=== PATIENT | male | born 1970 | race Hispanic/Latino ===

== ENCOUNTER 2019-12-13 17:49 | Inpatient (IN) | payer MEDICAID, OTHER, SELFPAY ==
[~2019-12-13] VITALS: Ht 175.3 cm; Wt 431.4 kg
[2019-12-13 18:50] LABS: BASOPHILS % (AUTO) 0.1 % (0.0-5.0); HEMATOCRIT 42.3 % (42-54); LYMPHOCYTES % (AUTO) 16.8 % (21.0-51.0); MEAN CORPUSCULAR HEMOGLOBIN 28.6 pg (27.0-33.0); MEAN CORPUSCULAR HGB CONC 33.8 g/dL (32.0-36.0); MEAN CORPUSCULAR VOLUME 84.6 fL (79-99); MONOCYTES % (AUTO) 5.2 % (3.0-13.0); NEUTROPHILS % (AUTO) 77.6 % (40.0-77.0); PLATELET COUNT (AUTO) 183 K/uL (130-400); RED CELL DISTRIBUTION WIDTH 13.1 % (11.0-15.5); WHITE BLOOD COUNT (AUTO) 6.7 K/uL (4.8-10.8)
[2019-12-13 18:57] LABS: CARBON DIOXIDE 28 mmol/L (21-32); CHLORIDE 97 mmol/L (101-111); GLOMERULAR FILTR. RATE CALC 84 mL/min (>60); GLUCOSE,RANDOM 231 mg/dL (70-105); POTASSIUM 3.4 mmol/L (3.5-5.1); SODIUM SERUM 135 mmol/L (136-145); UREA NITROGEN, BLOOD 6 mg/dL (7-18)
[2019-12-13 19:07] LABS: ALANINE AMINOTRANSFERASE 67 U/L (12-78); ASPARTATE AMINOTRANSFERASE 59 U/L (10-37); BILIRUBIN,TOTAL 0.6 mg/dL (0.2-1.0); CREATINE KINASE, TOTAL 111 U/L (21-232); MYOGLOBIN 46 ng/mL (10-92); TOTAL PROTEIN, SERUM 7.8 g/dL (6.0-8.3); TROPONIN I < 0.04 ng/mL (0.00-0.06)
[2019-12-13 19:17] LABS: APPEARANCE,URINE Clear (CLEAR); BILIRUBIN,URINE Negative (NEGATIVE); COLOR,URINE Dark Yellow (YELLOW); GLUCOSE, URINE (UA) 250 mg/dL (NEGATIVE); KETONES,URINE Trace mg/dL (NEGATIVE); LEUKOCYTE ESTERASE ,URINE Negative (NEGATIVE); NITRATE,URINE Negative (NEGATIVE); OCCULT BLOOD,URINE Negative (NEGATIVE); PH,URINE 6.5 (5.0-8.0); PROTEIN,URINE POS 2+ mg/dL (NEGATIVE)
[2019-12-13 19:26] LABS: INR 1.08 (0.85-1.15); PARTIAL THROMBOPLASTIN TIME 30.1 SEC (26.3-35.5); PROTHROMBIN TIME 11.6 SEC (9.6-11.6)
[2019-12-13 19:36] LABS: BACTERIA,URINE Rare /HPF (None Seen); RBC,URINE None Seen /HPF (0-1); WBC,URINE 0-1 /HPF (0-1)
[2019-12-13] MEDS ORDERED: AZITHROMYCIN 500MG+NS 250ML 250 ML IV ONE (19:39)
[2019-12-13] MEDS ORDERED: CEFTRIAXONE SODIUM 1 GM ONE (19:39)
[2019-12-13] MEDS ORDERED: SODIUM CHLORIDE 0.9% 1000ML 1,000 ML IV ONE (19:40)
[2019-12-13] MEDS ORDERED: FAMOTIDINE/PF 20 MG/2 ML VIAL IV ONE (19:40)
[2019-12-13] MEDS ORDERED: ONDANSETRON HCL 4 MG/2 ML VIAL ONE (19:40)
[2019-12-13] MEDS ORDERED: ACETAMINOPHEN 325 MG TAB ONE (19:50)
[2019-12-13 19:56] LABS: ABG BASE EXCESS -0.5 mmol/L (-2.0-3.0); ABG HCO3 22.5 mmol/L (21.0-28.0); ABG OXYGEN SATURATION 95.1 % (95.0-99.0); ABG PCO2 32 mmHg (35-48)
[2019-12-13] MEDS ORDERED: ENOXAPARIN SODIUM 30 MG/0.3 ML SQ ONE (19:57)
[2019-12-13] MEDS ORDERED: AZITHROMYCIN 500MG+NS 250ML 250 ML IV SCH (21:30)
[2019-12-13] MEDS ORDERED: ERGOCALCIFEROL (VITAMIN D2) 50,000 UNIT CAPSULE PO ONE (21:30)
[2019-12-13] MEDS ORDERED: POTASSIUM CHLORIDE 20MEQ/100ML 100 ML IV PRN (21:30)
[2019-12-13] MEDS ORDERED: DEXTROSE 50%-WATER 50 ML DISP.SYRIN IV PRN (21:30)
[2019-12-13] MEDS ORDERED: POTASSIUM CHLORIDE 10% ELIXIR 20 MEQ/15 ML UDCUP PO PRN (21:30)
[2019-12-13] MEDS ORDERED: MAGNESIUM 2GM PREMIX 50ML 50 ML IV PRN (21:30)
[2019-12-13] MEDS ORDERED: GLUCAGON 1MG KIT 1 MG ML IM PRN (21:30)
[2019-12-13] MEDS ORDERED: ONDANSETRON HCL 4 MG/2 ML VIAL IV PRN (21:30)
[2019-12-13] MEDS ORDERED: GUAIFENESIN-DM 200/20 MG 10 ML PO PRN (21:30)
[2019-12-13] MEDS ORDERED: ALBUTEROL INHALER 90MCG/INH IH PRN (21:30)
[2019-12-13] MEDS ORDERED: ACETAMINOPHEN 325 MG TAB PO PRN ×2 (21:30)
[2019-12-13] MEDS ORDERED: LIDOCAINE HCL-MPF 1% 2ML VIAL IV PRN (21:30)
[2019-12-14] MEDS ORDERED: ENOXAPARIN SODIUM 40 MG/0.4 ML SYRINGE SQ ONE (00:32)
[2019-12-14] MEDS ORDERED: METHYLPREDNISOLONE SOD SUCC 40MG/ML 1ML ONE ×3 (00:32→22:08)
[2019-12-14 07:05] LABS: BASOPHILS % (AUTO) 0.2 % (0.0-5.0); HEMATOCRIT 38.7 % (42-54); LYMPHOCYTES % (AUTO) 15.6 % (21.0-51.0); MEAN CORPUSCULAR HGB CONC 33.9 g/dL (32.0-36.0); MEAN CORPUSCULAR VOLUME 85.6 fL (79-99); MONOCYTES % (AUTO) 2.4 % (3.0-13.0); NEUTROPHILS % (AUTO) 81.3 % (40.0-77.0); PLATELET COUNT (AUTO) 180 K/uL (130-400); RED BLOOD CELL COUNT(AUTO) 4.52 MIL/uL (4.50-6.20); WHITE BLOOD COUNT (AUTO) 6.3 K/uL (4.8-10.8)
[2019-12-14] MEDS ORDERED: IOHEXOL 350 MG/ML 100ML INFUS..BTL IV ONE (07:13)
[2019-12-14] MEDS: INSULIN HUMULIN R 100 UNIT/ML 3ML SQ SCH ×4 (07:30→21:00)
[2019-12-14 07:32] LABS: ALBUMIN 2.7 g/dL (3.5-5.0); BILIRUBIN,TOTAL 0.6 mg/dL (0.2-1.0); CREATININE 0.8 mg/dL (0.5-1.5); CRP QUANTITATIVE 139.1 mg/L (0.00-9.0); MAGNESIUM 2.2 mg/dL (1.80-2.40); POTASSIUM 3.9 mmol/L (3.5-5.1); TOTAL PROTEIN, SERUM 7.2 g/dL (6.0-8.3)
[2019-12-14] MEDS: ASCORBIC ACID 500 MG TAB PO SCH (09:00)
[2019-12-14] MEDS ORDERED: ENOXAPARIN SODIUM 80 MG/0.8 ML SQ SCH (09:00)
[2019-12-14] MEDS ORDERED: ENOXAPARIN SODIUM 40 MG/0.4 ML SYRINGE SQ SCH (09:00)
[2019-12-14] MEDS: ZINC SULFATE 220 CAPSULE PO SCH (09:00)
[2019-12-14] MEDS ORDERED: ENOXAPARIN SODIUM 80 MG/0.8 ML SQ ONE (10:06)
[2019-12-14] MEDS ORDERED: ASCORBIC ACID 500 MG TAB ONE (10:07)
[2019-12-14] MEDS ORDERED: ACETYLCYSTEINE 600 MG CAPSULE ONE ×2 (10:08→22:08)
[2019-12-14] MEDS ORDERED: CEFTRIAXONE SODIUM 1 GM ONE ×2 (10:08→22:09)
[2019-12-14] MEDS ORDERED: ZINC SULFATE 220 CAPSULE ONE (10:08)
[2019-12-14] MEDS ORDERED: FAMOTIDINE/PF 20 MG/2 ML VIAL IV ONE ×2 (10:09→22:10)
[2019-12-14] MEDS ORDERED: INSULIN HUMULIN R 100 UNIT/ML 3ML ONE (10:11)
--- NOTE | 2019-12-14 16:23 | NUR ---
SPOKE TO SPOUSE RE DC PLANNING STATES LIVES WITH SPOUSE, IS INDEPENDENT, DRIVES, USES NO DME EXCEPT A CPAP WHICH WAS PRESCRIBE YEARS AGO WHEN MICHAEL HAD INSURANCE. CURRENTLY GOES OT [facility]- HAS A GLUCMENT, GETS LABS TEST Q 6 MOS. MOM IS HOSPITALIZED W COVID + , SPOUSE OK, DC PLAN IS HOME, SPOUSE TO PROVIDE TRANSPORT Addendum: 12/14/19 at 1625 by CHARLIE VIRK RN CM Amended: Links added.
[2019-12-14] MEDS: METHYLPREDNISOLONE SOD SUCC 40MG/ML 1ML IVP SCH (21:00)
[2019-12-14] MEDS: FAMOTIDINE/PF 20 MG/2 ML VIAL IV SCH (21:00)
[2019-12-14] MEDS: ACETYLCYSTEINE 600 MG CAPSULE PO SCH (21:00)
[2019-12-14] MEDS: CEFTRIAXONE SODIUM 1 GM IVP SCH (21:30)
[2019-12-14] MEDS ORDERED: AZITHROMYCIN 500MG+NS 250ML 250 ML IV ONE (22:08)
[2019-12-15] MEDS: PHARMACY COMMUNICATION MISC SCH ×2 (04:37→13:41)
[2019-12-15 05:54] LABS: BASOPHILS % (AUTO) 0.1 % (0.0-5.0); HEMATOCRIT 39.3 % (42-54); LYMPHOCYTES % (AUTO) 15.5 % (21.0-51.0); MEAN CORPUSCULAR HEMOGLOBIN 28.4 pg (27.0-33.0); MEAN CORPUSCULAR HGB CONC 33.1 g/dL (32.0-36.0); MONOCYTES % (AUTO) 4.5 % (3.0-13.0); NEUTROPHILS % (AUTO) 79.2 % (40.0-77.0); PLATELET COUNT (AUTO) 223 K/uL (130-400); RED BLOOD CELL COUNT(AUTO) 4.57 MIL/uL (4.50-6.20); RED CELL DISTRIBUTION WIDTH 12.9 % (11.0-15.5); WHITE BLOOD COUNT (AUTO) 8.1 K/uL (4.8-10.8)
[2019-12-15 06:13] LABS: ALBUMIN 2.8 g/dL (3.5-5.0); BILIRUBIN,TOTAL 0.5 mg/dL (0.2-1.0); CREATININE 0.9 mg/dL (0.5-1.5); CRP QUANTITATIVE 80.3 mg/L (0.00-9.0); POTASSIUM 3.6 mmol/L (3.5-5.1); TOTAL PROTEIN, SERUM 7.4 g/dL (6.0-8.3)
[2019-12-15 06:39] VITALS: BP 125/72
[2019-12-15 08:48] VITALS: BP 106/59
[2019-12-15] MEDS: CEFTRIAXONE SODIUM 1 GM IVP SCH ×2 (09:14→21:38)
[2019-12-15] MEDS: FAMOTIDINE/PF 20 MG/2 ML VIAL IV SCH ×2 (09:15→21:38)
[2019-12-15] MEDS: POTASSIUM CHLORIDE 20 MEQ ERTAB PO PRN ×2 (09:15→12:53)
[2019-12-15] MEDS: ASCORBIC ACID 500 MG TAB PO SCH (09:16)
[2019-12-15] MEDS: ACETYLCYSTEINE 600 MG CAPSULE PO SCH ×2 (09:16→21:38)
[2019-12-15] MEDS: GLIPIZIDE 5 MG TABLET PO SCH (09:16)
[2019-12-15] MEDS: ZINC SULFATE 220 CAPSULE PO SCH (09:16)
[2019-12-15] MEDS: METFORMIN HCL 500 MG TABLET PO SCH ×2 (09:17→16:45)
[2019-12-15] MEDS: ENOXAPARIN SODIUM 40 MG/0.4 ML SYRINGE SQ SCH (09:17)
[2019-12-15] MEDS: METHYLPREDNISOLONE SOD SUCC 40MG/ML 1ML IVP SCH ×3 (09:18→21:38)
[2019-12-15] MEDS: INSULIN HUMULIN R 100 UNIT/ML 3ML SQ SCH ×4 (09:20→21:38)
[2019-12-15] MEDS: INSULIN HUMULIN 70/30 100 UNIT/ML 3ML SQ SCH ×2 (09:21→16:46)
[2019-12-15 12:12] VITALS: BP 116/51
--- NOTE | 2019-12-15 16:19 | NUR ---
HOME O2- NEED HOME O2 EVAL- AT 2.5 LITERS AT THIS TIME HAS HOME CPAP MACHINE AT BEDSIDE SPOKE TO SPOUSE- POSSIBLE [facility] FROM [facility]. SPOUSE IN AGREEMENT. WILL WAIT FOR HOME O2 EVAL- IF NEEDS WILL MAKE ARRANGEMENT FOR PATIENT TO GO HOME WITH OXYGEN CONCENTRATOR AND PORTABLE TANK FOR DRIVE TO HOME
[2019-12-15 17:01] VITALS: BP 114/70
[2019-12-15 19:10] VITALS: BP 104/46
[2019-12-15 23:51] VITALS: BP 95/67
[2019-12-16 03:15] VITALS: BP 126/77
[2019-12-16 05:26] LABS: BASOPHILS % (AUTO) 0.2 % (0.0-5.0); HEMATOCRIT 38.5 % (42-54); LYMPHOCYTES % (AUTO) 12.4 % (21.0-51.0); MEAN CORPUSCULAR HEMOGLOBIN 28.6 pg (27.0-33.0); MEAN CORPUSCULAR HGB CONC 33.2 g/dL (32.0-36.0); MEAN CORPUSCULAR VOLUME 85.9 fL (79-99); NEUTROPHILS % (AUTO) 82.2 % (40.0-77.0); PLATELET COUNT (AUTO) 257 K/uL (130-400); RED BLOOD CELL COUNT(AUTO) 4.48 MIL/uL (4.50-6.20); RED CELL DISTRIBUTION WIDTH 12.8 % (11.0-15.5)
[2019-12-16 06:03] LABS: ALANINE AMINOTRANSFERASE 73 U/L (12-78); ALBUMIN 2.6 g/dL (3.5-5.0); ASPARTATE AMINOTRANSFERASE 44 U/L (10-37); BILIRUBIN,TOTAL 0.4 mg/dL (0.2-1.0); CARBON DIOXIDE 28 mmol/L (21-32); CHLORIDE 102 mmol/L (101-111); CREATININE 0.8 mg/dL (0.5-1.5); GLOMERULAR FILTR. RATE CALC 109 mL/min (>60); GLUCOSE,RANDOM 265 mg/dL (70-105); LACTATE DEHYDROGENASE 200 U/L (81-234); POTASSIUM 4.2 mmol/L (3.5-5.1); SODIUM SERUM 137 mmol/L (136-145); TOTAL PROTEIN, SERUM 6.9 g/dL (6.0-8.3); UREA NITROGEN, BLOOD 15 mg/dL (7-18)
[2019-12-16] MEDS: PHARMACY COMMUNICATION MISC SCH (06:30)
[2019-12-16] MEDS: GLIPIZIDE 5 MG TABLET PO SCH (06:38)
[2019-12-16] MEDS: INSULIN HUMULIN R 100 UNIT/ML 3ML SQ SCH ×2 (06:40→10:56)
[2019-12-16] MEDS: INSULIN HUMULIN 70/30 100 UNIT/ML 3ML SQ SCH (07:41)
[2019-12-16] MEDS: METFORMIN HCL 500 MG TABLET PO SCH (08:00)
[2019-12-16] MEDS: CEFTRIAXONE SODIUM 1 GM IVP SCH (10:17)
[2019-12-16] MEDS: ENOXAPARIN SODIUM 40 MG/0.4 ML SYRINGE SQ SCH (10:17)
[2019-12-16] MEDS: FAMOTIDINE/PF 20 MG/2 ML VIAL IV SCH (10:18)
[2019-12-16] MEDS: ASCORBIC ACID 500 MG TAB PO SCH (10:18)
[2019-12-16] MEDS: ACETYLCYSTEINE 600 MG CAPSULE PO SCH (10:18)
[2019-12-16] MEDS: ZINC SULFATE 220 CAPSULE PO SCH (10:18)
[2019-12-16] MEDS: METHYLPREDNISOLONE SOD SUCC 40MG/ML 1ML IVP SCH ×2 (10:19→13:21)
[2019-12-16 12:00] VITALS: BP 144/77
[2019-12-16] MEDS ORDERED: DEXA6TAB PO (14:15)
[2019-12-16] MEDS ORDERED: APIX2.5T PO (14:15)
== END 2019-12-16 18:00 | disposition home or self-care (01) | DRG 177 ==
LOC: EDH 17:49 → EDHIP 17:50 → 4AH 12-15 05:47
PROVIDERS: ADMIT Internal Medicine; ATTEND Internal Medicine
DX: U07.1 COVID-19 (principal); J12.89 Other viral pneumonia; J96.01 Acute respiratory failure with hypoxia; E87.2 Acidosis; E66.2 Morbid (severe) obesity with alveolar hypoventilation; E87.6 Hypokalemia; E11.9 Type 2 diabetes mellitus without complications
CPT/HCPCS: 36415; 36600; 71045; 71275; 80053; 81001; 82435; 82550; 82728; 82803; 82947; 82948; 83605; 83615; 83735; 83874; 84132; 84145; 84295; 84484; 85018; 85025; 85378; 85610; 85730; 86140; 86850; 86900; 86901; 87040; 87088; 87486; 87581; 87633; 87798; 87804; 93005; 94760; G0378; J0456; J0696; J1650; J1815; J2405; J2920; J3490; J7030; Q9967; U0003